=== PATIENT | female | born 1990 | race Caucasian/White ===

== ENCOUNTER 2017-01-04 10:39 | Emergency (ER) | payer OTHER ==
[2017-01-04 10:39] VITALS: BMI 31.8
[2017-01-04 11:17] VITALS: TEMP 98.2
[2017-01-04 12:47] LABS: PH,URINE 5.5 (4.7-8.0); URINE BILIRUBIN NEGATIVE (NEGATIVE); URINE BLOOD LARGE (NEGATIVE); URINE GLUCOSE (UA) NEGATIVE (NEGATIVE); URINE KETONE NEGATIVE (NEGATIVE); URINE LEUKOCYTE ESTERASE SMALL Leu/uL (NEGATIVE); URINE PROTEIN NEGATIVE mg/dL (<30 mg/dL); URINE UROBILINOGEN 0.2 E.U./dL (<1 E.U./dL)
[2017-01-04 12:50] LABS: URINE APPEARANCE CLEAR (CLEAR); URINE COLOR YELLOW (YELLOW)
[2017-01-04 12:59] LABS: URINE AMORPHOUS SEDIMENT FEW; URINE BACTERIA MANY (NEG); URINE RBC 25 - 30 /hpf (0-2)
--- NOTE | 2017-01-04 13:33 | ED PDOC ---
Arrival/HPI - General Chief Complaint: Back Pain Time Seen by Provider: 01/04/17 11:12 Historian: Patient - History of Present Illness Narrative History of Present Illness (Text): 01/04/17 13:22 Patient c/o low back pain x 2 days. Patient denies any injury, but sts she has 4 kids and she is constantly bending and lifting her kids. Patient denies fever , denies urinary symptoms. Past Medical History - Provider Review Nursing Documentation Reviewed: Yes - Travel History Have you recently traveled outside [place] w/in the past 3 mons?: Yes If Yes, travel location?: [place] - Reproductive Menopause: No - Past Medical History Past Medical History: No Previous - Psychiatric Hx Substance Use: No - Surgical History Hx Tubal Ligation: Yes Family/Social History - Physician Review Nursing Documentation Reviewed: Yes Family/Social History: No Known Family HX Smoking Status: Never Smoked Hx Alcohol Use: No Hx Substance Use: No Allergies/Home Meds Allergies/Adverse Reactions: Allergies No Known Allergies Allergy (Verified 01/04/17 11:09) Review of Systems - Physician Review All systems were reviewed & negative as marked: Yes - Review of Systems Musculoskeletal: Back Pain Physical Exam Vital Signs Reviewed: Yes Vital Signs Temp Pulse Resp BP Pulse Ox 01/04/17 13:00 59 L 19 106/64 100 01/04/17 11:10 98.2 F 61 16 125/85 99 Appearance: Positive for: Well-Appearing, Non-Toxic, Comfortable Pain Distress: None Mental Status: Positive for: Alert and Oriented X 3 - Systems Exam Head: Present: Atraumatic, Normocephalic Mouth: Present: Moist Mucous Membranes Neck: Present: Normal Range of Motion. No: MIDLINE TENDERNESS, Paraspinal Tenderness Respiratory/Chest: Present: Clear to Auscultation, Good Air Exchange, Accessory Muscle Use Cardiovascular: Present: Regular Rate and Rhythm, Murmurs, Normal S1, S2 Abdomen: No: Tenderness, Distention Back: Present: Midline Tenderness (LS spine), Paraspinal Tenderness (LS spine). No: CVA Tenderness Upper Extremity: Present: Normal Inspection, Normal ROM Lower Extremity: Present: Normal Inspection, Normal ROM, Neurovascularly Intact. No: Tenderness, Swelling Neurological: Present: Speech Normal, Motor Func Grossly Intact, Normal Sensory Function, Gait Normal Skin: Present: Warm, Normal Color. No: Rashes Psychiatric: Present: Alert, Oriented x 3, Normal Concentration Medical Decision Making ED Course and Treatment: 01/04/17 13:40 LS spine xray is negative, UA with blood (patient still has her menstruation now ), she has no urinary symptoms. Patient is stable to be d/c home with PMD follow up. Reassessment Condition: Re-examined - Lab Interpretations Lab Results: Lab Results 01/04/17 12:25: Urine Color Yellow, Urine Appearance Clear, Urine pH 5.5, Ur Specific [place] 1.025, Urine Protein Negative, Urine Glucose (UA) Negative, Urine Ketones Negative, Urine Blood Large H, Urine Nitrate Negative, Urine Bilirubin Negative, Urine Urobilinogen 0.2, Ur Leukocyte Esterase Small H, Urine RBC 25 - 30, Urine WBC 10 - 15, Ur Epithelial Cells 4 - 5, Amorphous Sediment Few, Urine Bacteria Many, Urine Other Uyeast, Urine HCG, Qual Negative - RAD Interpretation Radiology Orders: 01/04/17 11:29 LS SPINE AP/LAT [RAD] Stat Disposition/Present on Arrival - Present on Arrival Any Indicators Present on Arrival: No History of DVT/PE: No History of Uncontrolled Diabetes: No Urinary Catheter: No History of Decub. Ulcer: No History Surgical Site Infection Following: None - Disposition Have Diagnosis and Disposition been Completed?: Yes Diagnosis: Low back pain, Candidal vaginitis Disposition Time: 13:42 Patient Plan: Discharge Condition: STABLE Discharge Instructions (ExitCare): Acute Low Back Pain (ED), Vulvovaginal Candidiasis (ED) Additional Instructions: Follow up with PMD and OBGYN within 1-2 days. Return to ED if feel worse. Prescriptions: Fluconazole [Diflucan] 150 mg PO ONCE #1 tab Cyclobenzaprine [Cyclobenzaprine HCl] 10 mg PO TID #15 tab Lidocaine 5% [Lidoderm] 1 patch TP DAILY #30 patch Ibuprofen [Motrin Tab] 600 mg PO Q8 #30 tab Referrals: Zurdo Nelson MD [Primary Care Provider] - Follow up with primary
--- NOTE | 2017-01-04 13:47 | RAD ---
PROCEDURE: Radiographs of the Lumbar Spine. HISTORY: low back pain COMPARISON: No prior. FINDINGS: BONES: Vertebral bodies are maintained in height. The transverse processes and posterior elements are intact. There is no listhesis. There is minimal dextroscoliosis. DISC SPACES: Unremarkable. OTHER FINDINGS: None. IMPRESSION: Minimal dextroscoliosis. Otherwise unremarkable.
[2017-01-04 13:55] VITALS: BP 110/64; PULSE 68; RESP 12; O2SAT 98
== END 2017-01-04 13:54 | disposition home or self-care (01) ==
LOC: ED 10:39
DX: M54.5 Low back pain (principal); B37.3 Candidiasis of vulva and vagina